=== PATIENT | female | born 1970 | race Caucasian/White ===

== ENCOUNTER → 2018-11-15 | Outpatient (CLI) | payer MEDICARE ==
[~2018-11-15] MED LIST: B-121000 MCG IM; CINNAMON 1000 MG; CLARITIN PO; ELAVIL25 MG GT; KETOROLAC TROMETHAMINE 30 MG/ML VIAL ONE; LEVSIN0.125 MG PO; LIDOCAINE HCL 1% LOCAL INJ 20 ML VIAL ONE; MULTIVITAMIN QD; ONDANSETRON HCL INJ 2 MG/ML VIAL ONE; SOMA350 MG PO; VALIUM2 MG PO; VITAMIN D1000 UNI1 PO; Z.0.AMBIEN10 MG PO; Z.0.ATIVAN0.5 MG PO; Z.0.FLEXERIL10 MG PO; Z.0.NORCO 10-325 T1 PO; Z.0.PREMARIN0.9 MG PO; Z.0.PRILOSEC20 MG PO; Z.0.ZOLOFT100 MG PO; Z.1.VITAMIN D2000 UN PO; Z.2.LOSARTAN-HCTZ1 E PO
[2018-11-15 10:08] LABS: PROTHROMBIN TIME 14.1 seconds (11.9-14.5)
[2018-11-15 10:09] LABS: PARTIAL THROMBOPLASTIN TIME 31.4 seconds (23.8-35.5)
[2018-11-15 12:47] LABS: EOSINOPHILS # (AUTO) 0.1 (0.0-0.4); HEMATOCRIT 39.6 % (34.2-44.1); HEMOGLOBIN 13.6 g/dL (12.0-16.0); LYMPHOCYTES # (AUTO) 1.5 (1.0-3.2); LYMPHOCYTES % 35.7 % (18.0-39.1); MEAN CORPUSCULAR HEMOGLOBIN 30.2 pg (28-32); MEAN CORPUSCULAR HGB CONC 34.3 g/dL (31-35); MONOCYTES # (AUTO) 0.3 (0.2-0.8); MONOCYTES % 8.1 % (4.4-11.3); NEUTROPHILS # (AUTO) 2.2 (2.1-6.9); PLATELET COUNT 238 x10e3/uL (140-360); RED CELL DISTRIBUTION WIDTH 11.9 % (11.7-14.4)
--- NOTE | 2018-11-15 12:48 | Diagnostic Imaging Report ---
History: Benign intracranial hypertension, SORT OPERATIONS SUPERVISOR shunt Comparison studies: None Technique: Axial images were obtained from the skull base to the vertex. Coronal and sagittal reconstructions obtained from the axial data. Dose modulation, iterative reconstruction, and/or weight based adjustment of the mA/kV was utilized to reduce the radiation dose to as low as reasonably achievable. Findings: Scalp/skull: Right frontal ventricular catheter with its tip traversing the left lateral ventricle frontal horn, located at the internal capsule. No fractures, blastic or lytic lesions. Extra-axial spaces: No masses. No fluid collections. Brain sulci: Appropriate for age. Ventricles: Normal in size. Asymmetrically smaller left lateral ventricle. No hydrocephalus. Parenchyma: No abnormal densities. No masses, hemorrhage, acute or chronic cortical vascular insults. Sellar/suprasellar region: No abnormalities Craniocervical junction: Patent foramen magnum. No Chiari one malformation. IMPRESSION: No acute abnormalities . Right frontal ventricular shunt. No hydrocephalus. Signed by: DR Mark Cohen M.D. on 11/15/2018 12:45 PM
--- NOTE | 2018-11-15 13:12 | Diagnostic Imaging Report ---
EXAM: CT Abdomen and Pelvis WITHOUT contrast INDICATION: Evaluate LABORER LIVESTOCK shunt COMPARISON: CT Abdomen/Pelvis with contrast 01/12/2011. TECHNIQUE: Abdomen and pelvis were scanned utilizing a multidetector helical scanner from the lung base to the pubic symphysis without administration of IV contrast. Absence of intravenous contrast decreases sensitivity for detection of focal lesions and vascular pathology. Coronal and sagittal reformations were obtained. Routine protocol was performed. RADIATION DOSE: Total DLP: 932.4 mGy*cm Dose modulation, iterative reconstruction, and/or weight based adjustment of the mA/kV was utilized to reduce the radiation dose to as low as reasonably achievable. COMPLICATIONS: None FINDINGS: LINES and TUBES: There is a partially seen ventricular peritoneal shunt. The shunt courses in the anterior lower left chest wall and left upper abdominal wall soft tissues before coursing into the left abdomen. The shunt then courses across midline to the right and terminates in the right mid abdominal soft tissues. The catheter previously terminated in the left mid abdomen. No evidence of discontinuity or kinking. LOWER THORAX: Unremarkable. HEPATOBILIARY: Diffuse fatty liver. No focal hepatic lesions. No biliary ductal dilation. Status post cholecystectomy. SPLEEN: No splenomegaly. PANCREAS: No focal masses or ductal dilatation. ADRENALS: No adrenal nodules KIDNEYS/URETERS: No hydronephrosis. No cystic or solid mass lesions. No stones. GI TRACT: No abnormal distention, wall thickening, or evidence of bowel obstruction. Appendix is normal. PELVIC ORGANS/BLADDER: Status post hysterectomy. LYMPH NODES: No lymphadenopathy. VESSELS: There are scattered atherosclerotic calcifications in the aorta and branch vessels. PERITONEUM / RETROPERITONEUM: No free air or fluid. BONES/SOFT TISSUES: Unremarkable. IMPRESSION: Partially visualized LABORER LIVESTOCK shunt appears unremarkable without discontinuity or kinking. The shunt tip terminates in the right mid abdomen, previously it terminated in the left mid abdomen on CT from 01/12/2011. Diffuse fatty liver. Scattered aortic atherosclerosis. Signed by: Dr. Zoie Meek MD on 11/15/2018 1:09 PM
--- NOTE | 2018-11-15 13:37 | Diagnostic Imaging Report ---
EXAMINATION: Fluoroscopically-guided lumbar puncture HISTORY: Pseudotumor Cerebri, requiring large volume lumbar puncture. Has had multiple prior LPs, most recently in 2017. TECHNIQUE: medication: None. anesthesia: 1% lidocaine, 5 cc needle: 22 gauge x 5 inch spinal RADIATION MEASUREMENTS: fluoro time: 0.7 minutes DAP: 24.2 Gycm2 Total dose: 89.88 mGy PROCEDURE: After giving informed consent, the patient lay prone on the examination table. The back was prepped and draped in the usual sterile manner, and then 1% lidocaine was infiltrated in the skin. The spinal needle was advanced through the L3-L4 interspace via a left sided approach until CSF was obtained. Pressure obtained via prone positioning was 26 cm H20. Approximately 20 mL of fluid was removed and sent to the laboratory for tests ordered by the referring physician. Repeat pressure measurements in both prone and lateral position was 12 cm H20. The needle was subsequently removed. The patient was transferred to the recovery area in stable condition. FINDINGS: Pressure measurement pre: 26 cm H20; post 12 cm H20 CSF: Clear in appearance. IMPRESSION: Fluoroscopically-guided lumbar puncture via a left L4-L5 approach. Per referring request, large volume of CSF (20 cc) was removed with a decrease in pressure from 26 to 12 cm H20 post procedurally. Signed by: Dr. Zoie Meek MD on 11/15/2018 1:33 PM
[2018-11-15 14:49] LABS: TOTAL PROTEIN,CSF 65.1 mg/dL (15-40)
== END ==
LOC: DX 07:58
PROVIDERS: ATTEND Specialist
DX: G93.2 Benign intracranial hypertension (principal); Z98.2 Presence of cerebrospinal fluid drainage device; K76.0 Fatty (change of) liver, not elsewhere classified; I70.0 Atherosclerosis of aorta
CPT/HCPCS: 36415; 62270; 70450; 74176; 77003; 82945; 84157; 85025; 85049; 85610; 85730; 87070; 87205; J1885; J2001; J2405

== ENCOUNTER → 2018-12-13 | Outpatient (CLI) | payer MEDICARE ==
[~2018-12-13] MED LIST changes: -KETOROLAC TROMETHAMINE 30 MG/ML VIAL ONE; -LIDOCAINE HCL 1% LOCAL INJ 20 ML VIAL ONE; -ONDANSETRON HCL INJ 2 MG/ML VIAL ONE
--- NOTE | 2018-12-13 09:24 | Diagnostic Imaging Report ---
EXAMINATION: MR venogram of the brain without contrast HISTORY: Pelvic pain, heartbeat in the years, weakness in hands and feet COMPARISON: None. TECHNIQUE: MR venography was performed without contrast. The source images, rotated MIP images, and coronal and sagittal MPR images were reviewed. Axial DWI, post-contrast IR-prepped 3d-T1. Intravenous contrast: None. The patient reported a significant reaction to gadolinium contrast based material. FINDINGS: Dominant right transverse and sigmoid sinus. Focal decreased flow at the right transverse/sigmoid sinus junction with approximately more than 70% stenosis. Hypoplastic left sigmoid/transverse sinuses with long segment decreased flow of more than 70% stenosis. The remaining flow signal is seen in the major dural sinuses and deep veins to include the superior/inferior sagittal sinus, internal cerebral veins, vein of Matteo, straight sinus, torcula. Normal distribution of cortical veins. No stenosis or occlusion is seen. Partially visualized right frontal LCAC OPERATOR shunt with distal catheter tip at the left lateral periventricular region IMPRESSION: Limited study due to the lack of IV contrast. Hypoplastic left sigmoid sinus. Short segment severe stenosis at the right sigmoid/transverse sinus junction. Long segment severe stenosis at the left sigmoid/transverse sinus junction. Signed by: DR Mark Cohen M.D. on 12/13/2018 9:21 AM
== END ==
LOC: MRI 07:47
PROVIDERS: ATTEND Specialist
DX: G93.2 Benign intracranial hypertension (principal); Z98.2 Presence of cerebrospinal fluid drainage device
CPT/HCPCS: 70544

== ENCOUNTER → 2019-03-27 | Outpatient (CLI) | payer MEDICARE, OTHER ==
--- NOTE | 2019-03-27 19:14 | Diagnostic Imaging Report ---
Exam: Head CT without contrast History: Intracranial hypertension Comparison studies: Head CT 11/15/2018. Technique: Axial images were obtained from the skull base to the vertex. Coronal and sagittal images reconstructed from the axial data. Dose modulation, iterative reconstruction, and/or weight based adjustment of the mA/kV was utilized to reduce the radiation dose to as low as reasonably achievable. Radiation dose: Total DLP: 921 mGy*cm. Estimated effective dose: DLP x 0.015 Intravenous contrast: None Findings: Exam is somewhat limited by artifacts related to patient motion. In spite of limitations: Scalp and bones: Postsurgical changes with right frontal danial hole for new shunt catheter placement. New shunt catheter tubing appears to be intact. Old abandoned shunt catheter tubing in the right occipital scalp extends to the right dorsal cervical soft tissues. Brain sulci: Appropriate for age. Ventricles: Previous catheter has been removed. New right frontal shunt catheter tip in the frontal horn of the right lateral ventricle abuts the septum in the midline. Ventricular size and configuration are unchanged. The right lateral ventricle is slightly larger than the left which may be a congenital variant for this patient. The left lateral and third ventricles remain slitlike. No hydrocephalus. Extra-axial spaces: No masses, no fluid collection. Parenchyma: No mass, acute hemorrhage or acute cortical insults. Sellar/suprasellar region: No abnormalities. Craniocervical junction: Patent foramen magnum. No Chiari one malformation. IMPRESSION: Exam somewhat limited by artifacts related to patient motion. In spite of limitations: 1. No acute intracranial abnormalities. 2. Removal of previous shunt catheter and placement of new right frontal shunt catheter with catheter tip in the frontal horn right lateral ventricle. Ventricular size and configuration are unchanged from the prior 11/15/[address] Signed by: Dr. Luis Leyva M.D. on 03/27/2019 7:10 PM
--- NOTE | 2019-03-28 08:04 | Diagnostic Imaging Report ---
ADDENDUM #1 Addendum: Findings were also discussed by telephone with Dr. Garcia at 8:10 AM on 03/28/2019. Signed by: Dr. Luis Pérez M.D. on 03/28/2019 8:10 AM ORIGINAL REPORT EXAMINATION: CT of the abdomen without contrast. TECHNIQUE: Spiral CT images of the abdomen were performed from the lung bases to the iliac crests. No intravenous contrast was administeredper referring physician request. COMPARISON: CT abdomen and pelvis without contrast 11/15/2018 Clinical indication: Placement of shunts with right-sided abdominal swelling DISCUSSION: ABSENCE OF INTRAVENOUS CONTRAST DECREASES SENSITIVITY FOR DETECTION OF FOCAL LESIONS AND VASCULAR PATHOLOGY. LOWER THORAX:Unremarkable. HEPATOBILIARY: No focal hepatic lesion or intrahepatic biliary ductal dilatation. The gallbladder has been removed. SPLEEN: No splenomegaly. PANCREAS: No focal masses or ductal dilatation. ADRENALS: No adrenal nodules. KIDNEYS/URETERS: No hydronephrosis, stones, or solid mass lesions. PERITONEUM/RETROPERITONEUM: No free air or fluid. LYMPH NODES: No mesenteric or upper retroperitoneal lymphadenopathy. VESSELS: Limited evaluation without intravenous contrast. Mild atherosclerotic calcification of the abdominal aorta without aneurysmal dilatation. GI TRACT: Visualized portions of the small and large bowel show no distention or wall thickening. Visualized portions of the appendix are normal. BONES AND SOFT TISSUE: No osseous destructive lesions. Unchanged position of left-sided ventriculoperitoneal shunt catheter, with the tip terminating anteroinferior to the left hepatic lobe. Interval placement of a right-sided presumed ventriculoperitoneal shunt catheter, which coils in the subcutaneous tissues of the right mid abdomen, external to the abdominal wall musculature (series 2 image 38), with associated 9.8 x 7.8 cm fluid collection, average internal attenuation of the collection is -5-0 Hounsfield units. The catheter lies completely external to the peritoneal space. IMPRESSION: Interval placement of a right-sided ventriculoperitoneal shunt. The distal aspect of the catheter is coiled in the subcutaneous tissues external to the peritoneal cavity with an associated 9.8 x 7.8 cm low density fluid collection. Previously noted left sided ventriculoperitoneal shunt terminates within the peritoneal cavity at a slightly superomedial position to that described on 11/15/2018. Findings were discussed by telephone with Ms. Singh of Dr. Garcia's office at [phone] 03/28/2019. Signed by: Dr. Luis Pérez M.D. on 03/28/2019 8:01 AM
== END ==
LOC: CT 16:14
PROVIDERS: ATTEND Specialist
DX: G93.0 Cerebral cysts (principal); Z98.2 Presence of cerebrospinal fluid drainage device
CPT/HCPCS: 70450; 74150

== ENCOUNTER → 2019-05-04 | Outpatient (CLI) | payer MEDICARE ==
--- NOTE | 2019-05-04 14:35 | Diagnostic Imaging Report ---
EXAMINATION: CT of the abdomen without contrast. TECHNIQUE: Spiral CT images of the abdomen were performed from the lung bases to the iliac crests. No intravenous contrast was administeredper referring physician request. COMPARISON: CT abdomen and pelvis without contrast 03/27/2019. Clinical indication: Complication of ROLL SETTER shunt. DISCUSSION: ABSENCE OF INTRAVENOUS CONTRAST DECREASES SENSITIVITY FOR DETECTION OF FOCAL LESIONS AND VASCULAR PATHOLOGY. LOWER THORAX:Unremarkable. HEPATOBILIARY: No focal hepatic lesion or intrahepatic biliary ductal dilatation. Status post cholecystectomy. SPLEEN: No splenomegaly. PANCREAS: No focal masses or ductal dilatation. ADRENALS: No adrenal nodules. KIDNEYS/URETERS: No hydronephrosis, stones, or solid mass lesions. PERITONEUM/RETROPERITONEUM: No free air or fluid. LYMPH NODES: No mesenteric or upper retroperitoneal lymphadenopathy. VESSELS: Limited evaluation without intravenous contrast. There are scattered atherosclerotic calcifications in the aorta and branch vessels. GI TRACT: No abnormal distention, wall thickening, or evidence of bowel obstruction. Partially seen appendix is normal. BONES AND SOFT TISSUE: No osseous destructive lesions. Interval removal of left-sided ventricular peritoneal shunt catheter. Again noted is a right-sided ventriculoperitoneal shunt catheter which cause and subcutaneous tissues of the right mid abdomen, external to the abdominal wall musculature. Previously noted 9.8 cm simple attenuation fluid collection has decreased in size, now measuring up to 4.1 x 4.0 cm and with a smaller adjacent and communicating collection measuring up to 3.0 cm. The catheter lies external to the peritoneal space, as before. Interval development of postsurgical changes along the anterior midline abdominal wall. There is a trace anterior midline abdominal wall fluid collection, measuring up to 1.8 cm, IMPRESSION: Similar appearance of right-sided ventriculoperitoneal shunt catheter with the distal aspect coiled in the subcutaneous tissues external to the peritoneal cavity. Interval decrease in size of a low-density fluid collection, now two smaller communicating collections measuring up to 4.1 cm and 3.0 cm, previously 9.8 cm. Interval development of post surgical findings in the anterior midline abdominal wall with a 1.8 cm fluid collection. Interval removal of left-sided ventriculoperitoneal shunt catheter. Signed by: Dr. Zoie Meek MD on 05/04/2019 2:32 PM
--- NOTE | 2019-05-04 15:09 | Diagnostic Imaging Report ---
EXAMINATION: Head CT HISTORY: Benign intracranial hypertension. Shunt placement COMPARISON: Head CT 03/27/2019 TECHNIQUE: Multidetector axial images were obtained without contrast from the foramen magnum to the vertex . The images were reconstructed using brain and bone algorithms. Thin section brain images were reformatted into coronal and sagittal planes. Image quality: Motion/streaking artifact limits the evaluation of the skull base and posterior cranial fossa. Dose modulation, iterative reconstruction, and/or weight based adjustment of the mA/kV was utilized to reduce the radiation dose to as low as reasonably achievable. Image quality: Exam is limited by artifacts related to patient motion and streak artifact. FINDINGS: Parenchyma: 1. No abnormal densities. 2. No mass or hemorrhage. No CT evidence of acute territorial vascular insult. Extra-axial spaces:No abnormal density. No extra-axial fluid collections Brain volume: Normal for age. Ventricles: Right frontal approach is traversing the right frontal horn and the tip abuts the septum pellucidum. No hydrocephalus. The right lateral ventricle is slightly larger than the left which may be a congenital variant for this patient. The left lateral and third ventricles remain slitlike. No hydrocephalus. Arteries: No density suggestive of thrombus. Dural sinuses: No abnormal density. Extra-axial spaces: No abnormal density. Foramen magnum: No mass, Chiari malformation, or basilar invagination. Sella: No obvious mass. Paranasal/mastoid sinuses: Imaged portions unremarkable. Skull/Scalp: Right frontal danial hole, unchanged shunt catheter placement. New shunt catheter tubing appears to be intact. Old abandoned shunt catheter tubing in the right occipital scalp extends to the right dorsal cervical soft tissues. . IMPRESSION: 1. No acute intracranial abnormalities. 2. Unchanged right frontal ventricular shunt catheter, stable ventricular size compared to head CT of 03/27/2019. Signed by: Dr. Kim Mederos M.D. on 05/04/2019 3:05 PM
== END ==
LOC: CT 12:23
PROVIDERS: ATTEND Specialist
DX: G93.0 Cerebral cysts (principal); Z98.2 Presence of cerebrospinal fluid drainage device
CPT/HCPCS: 70450; 74150

== ENCOUNTER → 2019-06-20 | Outpatient (CLI) | payer MEDICARE ==
--- NOTE | 2019-06-20 13:38 | Diagnostic Imaging Report ---
Exam: CT abdomen without contrast Comparison: CT abdomen May 11, 2019 Clinical history: Weight gain Technique: Helical images of the abdomen were obtained without contrast DOSE REDUCTION: The exams was performed according to the departmental dose-optimization program which includes automated exposure control, adjustment of the mA and/or kV according to patient size and/or use of iterative reconstruction technique. Findings: The lung bases are clear. There is no evidence of pleural effusion. The cardiac size is within normal limits. The patient is status post revision of the ventriculoperitoneal shunt, catheter enters through the anterior abdominal wall in the right upper quadrant terminating in the region of the left upper quadrant of the peritoneal cavity. Subcutaneous fluid collections along the course of the shunt in the right upper quadrant anterior abdominal wall is again noted measuring 4.7 x 5.4 cm and 2.1 x 2.9 cm. They have slightly increased in size compared to the prior study. The visualized small and large bowels are normal in caliber without evidence of obstruction. The liver, spleen, pancreas, adrenal glands, and kidneys are unremarkable. The gallbladder has been removed. Impression: 1. Status post revision of the ventriculoperitoneal shunt with the catheter tip terminating in the left upper quadrant of the retina cavity. 2. Interval increase in size of the anterior abdominal wall fluid collection along the course of the shunt. Signed by: Dr. Braulio Zuñiga MD on 06/20/2019 1:34 PM
== END ==
LOC: CT 12:00
PROVIDERS: ATTEND Surgery
DX: T85.09XD Other mechanical complication of ventricular intracranial (communicating) shunt, subsequent encounter (principal)
CPT/HCPCS: 74150